=== PATIENT | female | born 1995 | race Caucasian/White ===

== ENCOUNTER 2016-05-22 09:27 | Outpatient (CLI) | payer MEDICAID | END 2016-05-22 09:28 | disposition home or self-care (01) | DX: Z11.3 Encounter for screening for infections with a predominantly sexual mode of transmission (principal) ==

== ENCOUNTER 2016-05-22 09:37 | Outpatient (CLI) | payer MEDICAID | END 2016-05-22 09:38 | disposition home or self-care (01) | DX: Z36 Encounter for antenatal screening of mother (principal) ==

== ENCOUNTER 2016-06-19 13:44 | Emergency (ER) | payer MEDICAID ==
--- NOTE | 2016-06-19 14:29 | ED Physician Documentation ---
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 and cramping does not know blood type Review of Systems Constitutional: denies: Fever Cardiac: denies: Chest pain / pressure Respiratory: denies: Dyspnea GI: reports: Abdominal Pain : reports: Vaginal bleeding, Now EGA Immunocompromised: denies: Immunocompromised PD PAST MEDICAL HISTORY - Past Surgical History Past Surgical History: No - Present Medications Home Medications: Ambulatory Orders Medication Instructions Recorded Confirmed Pnv95/Iron Fum/Folic Acid 1 tab PO DAILY 06/21/15 [ [place]] Promethazine [Phenergan] 25 mg PO Q6HR 06/19/16 06/19/16 - Allergies Allergies/Adverse Reactions: Allergies Allergy/AdvReac Type Severity Reaction Status Date / Time latex Allergy Rash Verified 06/19/16 13:58 - Social History Does the pt smoke?: Yes Smoking Status: Former smoker Does the pt drink ETOH?: Yes Does the pt have substance abuse?: No - Immunizations Immunizations are current?: Yes PD ED PE NORMAL - Vitals Vital signs reviewed: Yes - Cardiac Cardiac: RRR - Respiratory Respiratory: No respiratory distress - Abdomen Abdomen: Soft, Other (mod TTP low abd s rebound or guard) - Female Female : Reconcilement Clerk present (tech Jessy), Other (cervix closed, no tisuee steady trickle of bleed from os and some pooling in vault) - Derm Derm: Normal color Results - Vitals Vitals: Vital Signs - 24 hr 06/19/16 06/19/16 06/19/16 13:54 14:40 15:21 Temperature 36.5 C Heart Rate 94 85 70 Respiratory 14 18 18 Rate Blood Pressure 120/56 L 110/70 116/66 O2 Saturation 100 98 100 Oxygen O2 Source Room air - Labs Labs: Laboratory Tests 06/19/16 06/19/16 14:30 14:30 Hgb 12.3 Blood Type A POSITIVE - Rads (name of study) OB sono Radiology: See rad report (large perigestational bleeding encompassing approx 50 % circum gestational sac) PD MEDICAL DECISION MAKING - ED course ED course: d/w pts OB Dr Younger - advises bed rest pelvic rest and 24-48 hr 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 I spoke to Dr Younger - he recommends bed rest (only get up to go to the bathroom and briefly shower etc) and pelvic rest (no tampons, no intercourse) He would like to see you for a recheck tomorrow or Sunday - call the clinic to schedule Return if worse especially if very heavy bleeding (saturating more than 2 large pads per hour) or feeling faint
--- NOTE | 2016-06-19 15:35 | Ultrasound Report ---
FIRST TRIMESTER OB ULTRASOUND: 06/19/2016 CLINICAL INDICATION: New onset bleeding, pain. TECHNIQUE: Transabdominal pelvic ultrasound performed for global evaluation. Real-time scanning performed and static images obtained. FINDINGS: The uterus is anteverted. There is a gestational sac within the endometrial canal, with a fetus visualized. heart rate is 171 BPM. By crown-rump length, the fetus measures 12 weeks 0 days (12 weeks 3 days by LMP). There is a perigestational hemorrhage, involving approximately 50% of the circumference of the gestational sac. The cervix is unremarkable. The ovaries are normal, with the right measuring 2.4 x 2.1 x 2.1 cm, and the left measuring 2.9 x 2.4 x 1.6 cm. No free fluid is seen in the pelvis. IMPRESSION: SINGLE VIABLE INTRAUTERINE GESTATION, WITH SIZE IN KEEPING WITH LMP DATING. PERIGESTATIONAL HEMORRHAGE, INVOLVING APPROXIMATELY 50% OF THE CIRCUMFERENCE OF THE GESTATIONAL SAC. CRITICAL RESULT: Results called to Dr. Clark in the ED on 06/19/2016 at 1505hrs. JOB #: [id number] EXT JOB #: [id number]
[2016-06-19 16:10] VITALS: BP 117/75
== END 2016-06-19 16:10 | disposition home or self-care (01) ==
LOC: ED 13:44
DX: O20.0 Threatened abortion (principal); Z3A.11 11 weeks gestation of pregnancy; Z87.891 Personal history of nicotine dependence
CPT/HCPCS: 36415; 76801; 85018; 86900; 86901; 99283; 99284

== ENCOUNTER 2016-06-21 14:18 | Outpatient (CLI) | payer MEDICAID ==
[2016-06-23 21:07] LABS: TEST RESULT REPORT (())
== END 2016-06-21 14:19 | disposition home or self-care (01) ==
LOC: LAB 14:18
PROVIDERS: ATTEND Obstetrics & Gynecology
DX: Z36 Encounter for antenatal screening of mother (principal)
CPT/HCPCS: 36415; 81599

== ENCOUNTER 2016-07-25 08:07 | Outpatient (CLI) | payer MEDICAID ==
[2016-07-26 10:32] LABS: TEST RESULT REPORT (())
== END 2016-07-25 08:08 | disposition home or self-care (01) ==
LOC: LAB 08:07
PROVIDERS: ATTEND Obstetrics & Gynecology
DX: Z36 Encounter for antenatal screening of mother (principal)
CPT/HCPCS: 36415; 81511; 81599